=== PATIENT | female | born 1980 | race African-American/Black ===

== ENCOUNTER 2022-10-19 22:02 | Emergency (ER) | payer MEDICAID, OTHER ==
[~2022-10-19] VITALS: Ht 162.6 cm; Wt 190.0 kg
[2022-10-19 22:15] VITALS: O2SAT 100
[2022-10-19] MEDS ORDERED: ZIPRASIDONE MESYLATE 20MG/VIAL IM ONE (22:45)
[2022-10-20 00:14] LABS: BASOPHILS % 0.9 % (0.0-2.0); EOSINOPHILS % 0.6 % (0.0-5.0); HEMATOCRIT. 29.2 % (36.0-48.0); HEMOGLOBIN. 10.1 g/dL (12.0-16.0); LYMPHOCYTES % 34.2 % (20.0-50.0); MEAN CORPUSCULAR HEMOGLOBIN 31.5 pg (28.0-32.0); MEAN CORPUSCULAR HGB CONC 34.7 g/dL (31.0-37.0); MEAN CORPUSCULAR VOLUME 90.7 fL (81.0-99.0); MEAN PLATELET VOLUME 7.2 fl (7.4-10.4); MONOCYTES % 8.4 % (2.0-8.0); NEUTROPHILS % 55.9 % (40.0-76.0); PLATELET 405 x1000/uL (130-400); RED BLOOD CELL COUNT 3.22 mill/uL (4.2-5.4); RED CELL DISTRIBUTION WIDTH 15.3 % (11.6-14.6); WHITE BLOOD COUNT 9.3 x1000/uL (4.5-11.0)
[2022-10-20 00:24] LABS: CHLORIDE 107 mEq/L (98-107); INDEX HEMOLYSI 1 (1-3); INDEX ICTERIC 1 (1-4); INDEX LIPEMIC 1 (1-3); SODIUM 135 mEq/L (136-145)
[2022-10-20 00:30] LABS: HCG SCREEN NEGATIVE
[2022-10-20 00:48] LABS: ALBUMIN 3.6 g/dL (3.4-5.0); BILIRUBIN TOTAL 0.5 mg/dL (0.1-1.0); CALCIUM 8.1 mg/dL (8.5-10.1); CARBON DIOXIDE 24 mEq/L (21-32); GLUCOSE 95 mg/dL (70-105); PROTEIN TOTAL 7.9 g/dL (6.0-8.3); UREA NITROGEN BLOOD 9 mg/dL (7-21)
[2022-10-20 01:09] LABS: ALANINE AMINOTRANSFERASE 21 IU/L (13-61); ASPARTATE AMINOTRANSFERASE 25 IU/L (15-37); CREATININE 0.9 mg/dL (0.6-1.3)
[2022-10-20 01:10] LABS: ACETAMINOPHEN < 10 ug/mL (10-30); ETHANOL BLOOD < 10 mg/dL (-10)
[2022-10-20 01:13] LABS: POTASSIUM 2.5 mEq/L (3.5-5.1)
[2022-10-20 03:05] LABS: CLARITY URINE TURBID (CLEAR); COLOR URINE DARK YELLOW (YELLOW); GLUCOSE URINE NEGATIVE (NEGATIVE); KETONES URINE 1+ (NEGATIVE); LEUKOCYTE ESTERASE URINE TRACE (NEGATIVE); NITRITE URINE NEGATIVE (NEGATIVE); OCCULT BLOOD URINE 3+ (NEGATIVE); PH URINE 5.5 (4.5-8.0); PROTEIN URINE 2+ (NEGATIVE)
[2022-10-20 03:08] LABS: BACTERIA URINE NONE SEEN; RBC URINE TNTC /hpf (0-2); YEAST URINE NONE SEEN
[2022-10-20 03:25] LABS: *BARBITURATES SCREEN URINE NEGATIVE (NEGATIVE); *BENZODIAZEPINES SCREEN URINE NEGATIVE (NEGATIVE); *COCAINE SCREEN URINE NEGATIVE (NEGATIVE); CANNABINOID URINE SCREEN NEGATIVE (NEGATIVE); METHADONE URINE SCREEN NEGATIVE (NEGATIVE); OPIATES URINE SCREEN NEGATIVE (NEGATIVE); PHENCYCLIDINE URINE SCREEN NEGATIVE (NEGATIVE)
[2022-10-20 03:29] LABS: *AMPHETAMINES SCREEN URINE PRESUMTIVE POSITIVE (NEGATIVE); ECSTASY MDMA SCREEN URINE CONF.TEST INDICATED (NEGATIVE)
[2022-10-20 05:41] LABS: SQUAMOUS EPITHELIAL CELL URINE 1+ /lpf (RARE/1+)
[2022-10-20 05:42] LABS: WBC URINE 0-2 /hpf (0-2)
[2022-10-20] MEDS ORDERED: POTASSIUM CHLORIDE 20MEQ TABLET SR PO ONE (08:45)
[2022-10-20] MEDS: POTASSIUM CHLORIDE 20MEQ TABLET SR PO NR ×3 (10:15→11:12)
[2022-10-20] MEDS ORDERED: POTASSIUM CHLORIDE INJ 40 MEQ in DEXT 5% WATER 500 ML IV ONE (10:15)
[2022-10-20] MEDS ORDERED: LORAZEPAM 0.5MG TABLET PO ONE (10:15)
[2022-10-20 10:56] LABS: CALCIUM 8.6 mg/dL (8.5-10.1); CHLORIDE 110 mEq/L (98-107); INDEX HEMOLYSI 1 (1-3); INDEX ICTERIC 1 (1-4); INDEX LIPEMIC 1 (1-3); SODIUM 137 mEq/L (136-145)
[2022-10-20 11:00] LABS: CARBON DIOXIDE 26 mEq/L (21-32); CREATININE 0.7 mg/dL (0.6-1.3); GLUCOSE 113 mg/dL (70-105); UREA NITROGEN BLOOD 8 mg/dL (7-21)
[2022-10-20 11:23] LABS: POTASSIUM 2.7 mEq/L (3.5-5.1)
[2022-10-20 11:59] VITALS: BP 123/69; PULSE 100; RESP 18; TEMP 98.3
[2022-10-20] MEDS ORDERED: OLANZAPINE 10MG TABLET PO SCH (14:00)
[2022-10-20] MEDS ORDERED: ONDANSETRON HCL 4MG/2ML INJ IV PRN (17:00)
[2022-10-20] MEDS ORDERED: CLONIDINE 0.1MG TABLET PO PRN (17:00)
[2022-10-20] MEDS ORDERED: LORAZEPAM 0.5MG TABLET PO PRN (17:00)
[2022-10-20] MEDS ORDERED: ACETAMINOPHEN 325MG TABLET PO PRN ×2 (17:00)
[2022-10-20] MEDS ORDERED: DOCUSATE SODIUM 100MG CAPSULE PO PRN (17:00)
[2022-10-20] MEDS ORDERED: HYDROCODONE/ACETAMINOPHEN 5/325MG TABLET PO PRN (17:00)
== END 2022-10-20 17:02 | disposition home or self-care (01) ==
LOC: ER 22:02
DX: R41.0 Disorientation, unspecified (principal); E87.6 Hypokalemia; Z20.822 Contact with and (suspected) exposure to COVID-19
CPT/HCPCS: 80053; 80307; 80329; 80320; 84703; 85025; 36415 ×2; 96372; 99285; 80305; 80048; 81003; 93005; 87426; J3486; Z7610 ×3; C9803; J3480; J7060; G0480

== ENCOUNTER 2022-10-20 18:12 | Emergency (ER) | payer MEDICAID ==
[~2022-10-20] VITALS: Ht 167.6 cm; Wt 104.0 kg
[2022-10-20 18:29] VITALS: BP 122/77; PULSE 105; RESP 20; TEMP 98.4; O2SAT 100
== END 2022-10-20 21:38 | disposition home or self-care (01) ==
LOC: ER 18:12
DX: Z13.9 Encounter for screening, unspecified (principal); F15.10 Other stimulant abuse, uncomplicated
CPT/HCPCS: 99281